=== PATIENT | female | born 1960 | race Caucasian/White ===

== ENCOUNTER 2017-11-22 17:00 | Inpatient (IN) | payer OTHER ==
[2017-11-22] MEDS ORDERED: RX INFO: IV CONTRAST WAS GIVEN 1 EACH MISC MISCELLANE PRN (17:09)
[2017-11-22] MEDS ORDERED: MORPHINE SULFATE 4 MG/ML SYRINGE IVP STA (17:09)
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
[2017-11-22 17:31] LABS: Glucose,Whole Blood 180 mg/dL (75-99)
[2017-11-22 17:36] LABS: Basophils # (A) 0.1 k/uL (0-0.2); Basophils % (A) 1 %; Eosinophils # (A) 0.3 k/uL (0-0.7); Eosinophils % (A) 2 %; HCT 42.6 % (34.0-46.0); HGB 14.4 gm/dL (11.4-16.0); Lymphocytes # (A) 2.8 k/uL (1.0-4.8); Lymphocytes % (A) 25 %; MCH 31.4 pg (25.0-35.0); MCHC 33.8 g/dL (31.0-37.0); Mean Platelet Volume 7.9; Monocytes # (A) 0.4 k/uL (0-1.0); Monocytes % (A) 4 %; Neutrophils # (A) 7.2 k/uL (1.3-7.7); Neutrophils % (A) 66 %; Platelet Count 229 k/uL (150-450); RBC 4.58 m/uL (3.80-5.40); RDW 13.1 % (11.5-15.5); WBC 10.9 k/uL (3.8-10.6)
[2017-11-22 17:46] LABS: ALT 50 U/L (9-52); AST 63 U/L (14-36); Albumin 3.9 g/dL (3.5-5.0); Alcohol <10 mg/dL; Alkaline Phosphatase 112 U/L (38-126); Amylase 36 U/L (30-110); Anion Gap 10 mmol/L; Blood Urea Nitrogen 11 mg/dL (7-17); Calcium 9.3 mg/dL (8.4-10.2); Carbon Dioxide 28 mmol/L (22-30); Chloride 103 mmol/L (98-107); Glucose 181 mg/dL (74-99); Lipase 48 U/L (23-300); Potassium 4.5 mmol/L (3.5-5.1); Sodium 141 mmol/L (137-145); Total Bilirubin 0.7 mg/dL (0.2-1.3); Total Protein 7.1 g/dL (6.3-8.2)
[2017-11-22 17:50] LABS: Creatine Kinase 108 U/L (30-135)
[2017-11-22 18:02] LABS: Creatine Kinase MB 0.5 ng/mL (0.0-2.4); Troponin I <0.012 ng/mL (0.000-0.034)
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
[2017-11-22] MEDS ORDERED: diphenhydrAMINE 50 MG/ML 1 ML VIAL IVP STA (18:19)
[2017-11-22] MEDS ORDERED: methylPREDNISolone SOD SUCCI 125 MG/2 ML VIAL IV STA (18:19)
[2017-11-22] MEDS ORDERED: FAMOTIDINE 20 MG/2 ML VIAL IV STA (18:20)
[2017-11-22 18:21] LABS: INR 1.1 (<1.2); Partial Thromboplastin Time 22.9 sec (22.0-30.0); Prothrombin Time 10.3 sec (9.0-12.0)
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
[2017-11-22 19:04] LABS: Appearance,Urine Clear (Clear); Bilirubin,Urine Negative (Negative); Blood,Urine Negative (Negative); Color,Urine Colorless; Glucose,Urine (UA) Negative (Negative); Ketones,Urine Negative (Negative); Leukocyte Esterase,Urine Negative (Negative); Nitrite,Urine Negative (Negative); Protein,Urine Negative (Negative); Specific Gravity,Urine 1.025 (1.001-1.035); Urobilinogen,Urine <2.0 mg/dL (<2.0)
[2017-11-22 19:19] LABS: Amphetamine Screen,Urine Not Detected (NotDetected); Barbiturate Screen,Urine Not Detected (NotDetected); Benzodiazepines Screen,Urine Not Detected (NotDetected); Cocaine Screen,Urine Not Detected (NotDetected); Methadone Screen, Urine Not Detected (NotDetected); Opiate Screen,Urine Detected (NotDetected); Oxycodone Screen, Urine Not Detected (NotDetected); Phencyclidine Screen,Urine Not Detected (NotDetected); Tricyclic Antidepressant,Urine Detected (NotDetected); Urn Cannabinoid Scrn Not Detected (NotDetected)
[2017-11-22] MEDS ORDERED: MORPHINE SULFATE 4 MG/ML SYRINGE IV STA (19:22)
[2017-11-22] MEDS ORDERED: NALOXONE 0.4 MG/ML 1 ML VIAL IV PRN (19:42)
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
[2017-11-22 21:06] VITALS: BMI 42.3
[2017-11-22] MEDS: MORPHINE SULFATE 4 MG/ML SYRINGE IV PRN (21:33)
[2017-11-22] MEDS: METOPROLOL TARTRATE 50 MG TAB PO SCH (23:08)
[2017-11-23] MEDS: MORPHINE SULFATE 4 MG/ML SYRINGE IV PRN ×6 (01:22→23:48)
[2017-11-23] MEDS: SODIUM CHLORIDE 0.9% 1,000 ML IV SCH ×3 (04:52→16:01)
[2017-11-23 06:51] LABS: Glucose,Whole Blood 127 mg/dL (75-99)
[2017-11-23] MEDS: METOPROLOL TARTRATE 50 MG TAB PO SCH ×2 (08:24→20:48)
[2017-11-23] MEDS: PANTOPRAZOLE 40 MG/10 ML VIAL IV SCH (08:25)
[2017-11-23 08:40] LABS: ALT 48 U/L (9-52); AST 51 U/L (14-36); Albumin 3.3 g/dL (3.5-5.0); Alkaline Phosphatase 94 U/L (38-126); Anion Gap 9 mmol/L; Blood Urea Nitrogen 8 mg/dL (7-17); Calcium 8.8 mg/dL (8.4-10.2); Carbon Dioxide 28 mmol/L (22-30); Chloride 104 mmol/L (98-107); Glucose 118 mg/dL (74-99); Potassium 4.3 mmol/L (3.5-5.1); Sodium 141 mmol/L (137-145); Total Bilirubin 0.6 mg/dL (0.2-1.3)
[2017-11-23 08:49] LABS: Basophils # (A) 0.1 k/uL (0-0.2); Basophils % (A) 1 %; Eosinophils # (A) 0.1 k/uL (0-0.7); Eosinophils % (A) 1 %; HCT 38.1 % (34.0-46.0); HGB 12.9 gm/dL (11.4-16.0); Lymphocytes # (A) 3.1 k/uL (1.0-4.8); Lymphocytes % (A) 37 %; MCH 31.6 pg (25.0-35.0); MCHC 33.9 g/dL (31.0-37.0); MCV 93.2 fL (80.0-100.0); Mean Platelet Volume 7.8; Monocytes # (A) 0.4 k/uL (0-1.0); Monocytes % (A) 5 %; Neutrophils # (A) 4.6 k/uL (1.3-7.7); Neutrophils % (A) 55 %; Platelet Count 221 k/uL (150-450); RBC 4.09 m/uL (3.80-5.40); RDW 13.3 % (11.5-15.5); WBC 8.3 k/uL (3.8-10.6)
[2017-11-23 11:12] LABS: Glucose,Whole Blood 190 mg/dL (75-99)
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
[2017-11-23 17:46] LABS: Glucose,Whole Blood 140 mg/dL (75-99)
[2017-11-23] MEDS: INSULIN ASPART 100 UNIT/ML 1 ML 10 ML VIAL SQ SCH ×2 (17:58→20:45)
[2017-11-23 20:06] LABS: Hemoglobin A1C 8.2 % (4.0-6.0)
[2017-11-23 20:13] LABS: Glucose,Whole Blood 166 mg/dL (75-99)
[2017-11-23] MEDS: clonazePAM 1 MG TAB PO SCH (20:43)
[2017-11-23] MEDS: levETIRAcetam 500 MG TAB PO SCH (20:44)
[2017-11-23] MEDS: ATORVASTATIN 20 MG TAB PO SCH (20:45)
[2017-11-23] MEDS: QUEtiapine 200 MG TAB PO SCH (20:45)
[2017-11-23] MEDS ORDERED: INSULIN DETEMIR 100 UNIT/ML 10 ML VIAL SQ SCH (21:00)
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
[2017-11-24] MEDS: SODIUM CHLORIDE 0.9% 1,000 ML IV SCH (01:45)
[2017-11-24] MEDS: MORPHINE SULFATE 4 MG/ML SYRINGE IV PRN ×2 (04:28→08:45)
[2017-11-24] MEDS ORDERED: INSULIN DETEMIR 100 UNIT/ML 10 ML VIAL SQ SCH (06:31)
[2017-11-24 06:55] LABS: Glucose,Whole Blood 136 mg/dL (75-99)
[2017-11-24] MEDS: FLUoxetine HCL 20 MG CAP PO SCH (08:39)
[2017-11-24] MEDS: METOPROLOL TARTRATE 50 MG TAB PO SCH ×2 (08:39→21:29)
[2017-11-24] MEDS: levETIRAcetam 500 MG TAB PO SCH ×2 (08:39→21:28)
[2017-11-24] MEDS: metFORMIN 500 MG TAB PO SCH (08:40)
[2017-11-24] MEDS: PANTOPRAZOLE 40 MG/10 ML VIAL IV SCH (08:40)
[2017-11-24] MEDS: clonazePAM 1 MG TAB PO SCH ×2 (08:45→21:52)
[2017-11-24] MEDS: INSULIN ASPART 100 UNIT/ML 1 ML 10 ML VIAL SQ SCH ×4 (08:53→21:53)
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
[2017-11-24 11:29] LABS: Glucose,Whole Blood 168 mg/dL (75-99)
[2017-11-24] MEDS: HYDROcodone/APAP 10-325MG 1 EACH TAB PO PRN ×3 (11:38→21:25)
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
[2017-11-24 17:00] LABS: Glucose,Whole Blood 155 mg/dL (75-99)
[2017-11-24 20:15] LABS: Glucose,Whole Blood 200 mg/dL (75-99)
[2017-11-24] MEDS: QUEtiapine 200 MG TAB PO SCH (21:29)
[2017-11-24] MEDS: ATORVASTATIN 20 MG TAB PO SCH (21:29)
[2017-11-24 21:41] VITALS: PULSE 61; RESP 20
[2017-11-24] MEDS: FAMOTIDINE 20 MG TAB PO SCH (21:53)
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
[2017-11-25] MEDS: HYDROcodone/APAP 10-325MG 1 EACH TAB PO PRN ×3 (03:21→14:21)
[2017-11-25 07:51] LABS: Glucose,Whole Blood 129 mg/dL (75-99)
[2017-11-25] MEDS: metFORMIN 500 MG TAB PO SCH (07:58)
[2017-11-25] MEDS: METOPROLOL TARTRATE 50 MG TAB PO SCH (07:58)
[2017-11-25] MEDS: clonazePAM 1 MG TAB PO SCH (07:59)
[2017-11-25] MEDS: levETIRAcetam 500 MG TAB PO SCH (07:59)
[2017-11-25] MEDS: FAMOTIDINE 20 MG TAB PO SCH (07:59)
[2017-11-25] MEDS: FLUoxetine HCL 20 MG CAP PO SCH (08:00)
[2017-11-25 08:33] LABS: Basophils % (A) 1 %; Eosinophils # (A) 0.2 k/uL (0-0.7); Eosinophils % (A) 3 %; HCT 41.9 % (34.0-46.0); HGB 13.1 gm/dL (11.4-16.0); Lymphocytes # (A) 2.9 k/uL (1.0-4.8); Lymphocytes % (A) 42 %; MCH 30.1 pg (25.0-35.0); MCHC 31.3 g/dL (31.0-37.0); MCV 96.3 fL (80.0-100.0); Mean Platelet Volume 8.1; Monocytes # (A) 0.3 k/uL (0-1.0); Monocytes % (A) 5 %; Neutrophils # (A) 3.3 k/uL (1.3-7.7); Neutrophils % (A) 48 %; Platelet Count 219 k/uL (150-450); RBC 4.35 m/uL (3.80-5.40); RDW 13.1 % (11.5-15.5); WBC 6.8 k/uL (3.8-10.6)
[2017-11-25 08:50] LABS: Anion Gap 8 mmol/L; Blood Urea Nitrogen 8 mg/dL (7-17); Calcium 9.2 mg/dL (8.4-10.2); Carbon Dioxide 31 mmol/L (22-30); Chloride 102 mmol/L (98-107); Glucose 134 mg/dL (74-99); Potassium 4.3 mmol/L (3.5-5.1); Sodium 141 mmol/L (137-145)
[2017-11-25 08:52] VITALS: BP 121/67; TEMP 97.8
[2017-11-25] MEDS: INSULIN ASPART 100 UNIT/ML 1 ML 10 ML VIAL SQ SCH ×2 (09:19→13:27)
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
[2017-11-25 11:53] LABS: Glucose,Whole Blood 136 mg/dL (75-99)
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
== END 2017-11-25 16:57 | disposition home or self-care (01) | DRG 948 ==
LOC: EC 17:00 → 5MS5E 19:43 → OBSVTOIN 11-25 12:39
PROVIDERS: ADMIT Surgery; ATTEND Surgery
DX: R52 Pain, unspecified (principal); E11.69 Type 2 diabetes mellitus with other specified complication; I11.9 Hypertensive heart disease without heart failure; K50.90 Crohn's disease, unspecified, without complications; V86.62XA Passenger of snowmobile injured in nontraffic accident, initial encounter; E66.01 Morbid (severe) obesity due to excess calories; E78.5 Hyperlipidemia, unspecified; F10.129 Alcohol abuse with intoxication, unspecified; F17.210 Nicotine dependence, cigarettes, uncomplicated; F41.9 Anxiety disorder, unspecified; G40.909 Epilepsy, unspecified, not intractable, without status epilepticus; I51.7 Cardiomegaly; S60.011A Contusion of right thumb without damage to nail, initial encounter; Y92.410 Unspecified street and highway as the place of occurrence of the external cause; Z79.4 Long term (current) use of insulin; Z79.899 Other long term (current) drug therapy; Z80.41 Family history of malignant neoplasm of ovary; Z82.5 Family history of asthma and other chronic lower respiratory diseases; Z96.641 Presence of right artificial hip joint
CPT/HCPCS: 36415; 70450; 71045; 71260; 72125; 72170; 74177; 80048; 80053; 80306; 80320; 81003; 82150; 82272; 82550; 82553; 83036; 83605; 83690; 84484; 85025; 85610; 85730; 86850; 86900; 86901; 93005; 93306; 94760; 96374; 96375; 96376; 99285